=== PATIENT | female | born 1985 ===

== ENCOUNTER 2018-08-08 13:00 | Outpatient (CLI) | payer OTHER ==
[~2018-08-08] VITALS: Ht 162.6 cm; Wt 90.7 kg
== END 2018-08-08 13:15 | disposition home or self-care (01) ==
LOC: OFIC 805 13:00
DX: J32.8 Other chronic sinusitis (principal); R09.81 Nasal congestion; J34.3 Hypertrophy of nasal turbinates

== ENCOUNTER 2019-01-14 08:32 | Outpatient (CLI) | payer OTHER ==
[~2019-01-14] VITALS: Ht 152.4 cm; Wt 90.7 kg
== END 2019-01-14 08:45 | disposition home or self-care (01) ==
LOC: OFIC 805 08:32
DX: J32.8 Other chronic sinusitis (principal); R09.81 Nasal congestion; J34.3 Hypertrophy of nasal turbinates; J33.8 Other polyp of sinus